=== PATIENT | male | born 1980 | race Caucasian/White ===

== ENCOUNTER 2018-02-23 03:19 | Inpatient (IN) ==
[2018-02-23] MEDS ORDERED: HALOPERIDOL 5 MG/ML AMP IM STA ×2 (03:44→07:05)
[2018-02-23] MEDS ORDERED: diphenhydrAMINE 50 MG/1 ML VIAL IM STA (03:44)
[2018-02-23] MEDS ORDERED: LORazepam 2 MG/1 ML VIAL IV STA (04:45)
[2018-02-23] MEDS ORDERED: LORazepam 2 MG/1 ML VIAL ONE (04:46)
[2018-02-23 05:00] LABS: Basophils # 0.1 10*3/uL (0.0-0.2); Basophils % 0.4 % (0.0-0.8); Eosinophils % 0.1 % (0.00-10.9); Hematocrit 39.1 VOL% (42.0-52.0); Hemoglobin 13.4 GM/DL (14.0-18.0); Immature Granulocytes % 0.4 %; Immature Granulocytes Absolute 0.06 #; Lymphocytes # 2.3 10*3/uL (1.4-4.0); Mean Corpuscular HGB Conc 34.3 GM/DL (32-36); Mean Corpuscular Hemoglobin 31 PG (27-34); Mean Corpuscular Volume 90.5 FL (87-102); Mean Platelet Volume 13.4 FL (9.6-12.0); Monocytes # 0.9 10*3/uL (0.11-0.8); Neutrophils # 10.1 10*3/uL (1.4-7.4); Neutrophils % 75.1 % (38.7-73.9); Platelet Count 153 T/CUMM (130-400); Red Blood Count 4.32 MC/CUMM (3.8-5.5); Red Cell Distribution Width 12.3 % (9.3-17.3); White Blood Count 13.4 T/CUMM (4-12)
[2018-02-23] MEDS ORDERED: MIDAZOLAM 2 MG/2 ML VIAL IV STA ×2 (05:14→05:15)
[2018-02-23 05:18] LABS: Ammonia 18 UMOL/L (11-32)
[2018-02-23] MEDS ORDERED: HALOPERIDOL 5 MG/ML AMP IV STA (05:20)
[2018-02-23 05:24] LABS: Alanine Aminotransferase 34 U/L (16-61); Albumin 4.2 G/DL (3.4-5.0); Alkaline Phosphatase 79 U/L (45-117); Aspartate Amino Transferase 24 U/L (0-37); Blood Urea Nitrogen 14 MG/DL (7-18); Calcium 8.9 MG/DL (8.5-10.1); Glucose 106 MG/DL (74-106); Osmolality,Calculated 283.1 MOS/KG (273-304); Potassium 3.6 MMOL/L (3.5-5.1); Sodium 142 MMOL/L (136-145); Total Protein 7.1 G/DL (6.4-8.3)
[2018-02-23 05:30] LABS: Barbiturates Screen,Urine Negative (Negative); Benzodiazepines Screen,Urine Negative (Negative); Cannabinoid Screen,Urine Negative (Negative); Opiate Screen,Urine Negative (Negative); Phencyclidine Screen,Urine Negative (Negative)
[2018-02-23 05:49] LABS: Salicylate < 2.8 MG/DL (2.8-20)
[2018-02-23 05:50] LABS: Acetaminophen < 2.0 UG/ML (10-30)
[2018-02-23] MEDS ORDERED: SODIUM CHLORIDE 0.9% 1,000 ML IV STA (06:19)
[2018-02-23] MEDS ORDERED: BENZTROPINE 2 MG/2 ML AMP IM ONE (07:06)
[2018-02-23] MEDS ORDERED: BENZTROPINE 2 MG/2 ML AMP ONE (07:07)
[2018-02-23] MEDS ORDERED: PROPOFOL 1,000 MG/100 ML BOTTLE IV ONE (07:23)
[2018-02-23] MEDS ORDERED: VECURONIUM 10 MG VIAL IV ONE (07:29)
[2018-02-23] MEDS ORDERED: ETOMIDATE 20 MG/10 ML VIAL IV ONE (07:29)
[2018-02-23] MEDS: PROPOFOL 1,000 MG/100 ML BOTTLE IV SCH ×5 (07:30→22:55)
[2018-02-23] MEDS ORDERED: ETOMIDATE 20 MG/10 ML VIAL IV STA (07:41)
[2018-02-23] MEDS ORDERED: VECURONIUM 10 MG VIAL IV STA ×2 (07:41→08:17)
[2018-02-23 08:12] LABS: Apearance,Urine CLEAR (Clear); Bilirubin,Urine Negative (Negative); Blood, Urine Negative (Negative); Glucose,Urine (UA) Negative (Negative); Ketones,Urine Negative (Negative); Mucus,Urine Occasional /LPF (Occasional); Nitrite,Urine Negative (Negative); Protein,Urine Negative; RBC,Urine 1 /HPF (0-4); Urine Color Yellow (Yellow); Urine Specific Gravity 1.027 (1.001-1.035); Urine Urobilinogen < 2.0 EU/DL (0.2-1.0); WBC,Urine <1 /HPF (0-6)
[2018-02-23 08:38] LABS: ABG Base Excess 2.1 MMOL/L (-2.5-2.5); ABG HCO3 25.5 MMOL/L (20-26); ABG PCO2 38.9 MM HG (35-48); ABG PH 7.436 (7.35-7.45); ABG TCO2 23.3 MMOL/L (23-27)
[2018-02-23 08:39] LABS: ABG PO2 33.7 MM HG (80-95)
[2018-02-23] MEDS: LORazepam 2 MG/1 ML VIAL IV PRN (09:43)
[2018-02-23] MEDS: SODIUM CHLORIDE 0.9% 1,000 ML IV SCH ×2 (09:43→17:45)
[2018-02-23] MEDS: ENOXAPARIN 40 MG/0.4 ML SYRINGE SUBCUT SCH (09:48)
[2018-02-23] MEDS ORDERED: INFLUENZA VIRUS VACCINE 0.5 ML SYRINGE IM ONE (10:00)
[2018-02-23] MEDS ORDERED: MIDAZOLAM 100 MG in SODIUM CHLORIDE 0.9% 80 ML IV PRN (10:34)
[2018-02-24] MEDS: SODIUM CHLORIDE 0.9% 1,000 ML IV SCH (02:01)
[2018-02-24] MEDS: PROPOFOL 1,000 MG/100 ML BOTTLE IV SCH ×3 (02:01→08:15)
[2018-02-24 04:59] LABS: Basophils # 0.1 10*3/uL (0.0-0.2); Basophils % 0.4 % (0.0-0.8); Eosinophils # 0.2 10*3/uL (0.0-0.87); Eosinophils % 1.4 % (0.00-10.9); Hematocrit 34.4 VOL% (42.0-52.0); Hemoglobin 11.6 GM/DL (14.0-18.0); Immature Granulocytes % 0.5 %; Immature Granulocytes Absolute 0.06 #; Mean Corpuscular HGB Conc 33.7 GM/DL (32-36); Mean Corpuscular Hemoglobin 31 PG (27-34); Mean Corpuscular Volume 90.8 FL (87-102); Mean Platelet Volume 13.8 FL (9.6-12.0); Monocytes # 0.7 10*3/uL (0.11-0.8); Monocytes % 6.5 % (1.7-12.7); Neutrophils # 8.1 10*3/uL (1.4-7.4); Neutrophils % 73.2 % (38.7-73.9); Platelet Count 123 T/CUMM (130-400); Red Blood Count 3.79 MC/CUMM (3.8-5.5); Red Cell Distribution Width 12.5 % (9.3-17.3); White Blood Count 11.1 T/CUMM (4-12)
[2018-02-24 05:35] LABS: Osmolality,Calculated 287.6 MOS/KG (273-304)
[2018-02-24] MEDS: ENOXAPARIN 40 MG/0.4 ML SYRINGE SUBCUT SCH (08:15)
[2018-02-24] MEDS: LORazepam 2 MG/1 ML VIAL IV PRN (08:41)
[2018-02-24] MEDS ORDERED: DEXT 5% NACL 0.45% KCL 10 MEQ 10 MEQ/1,000 ML BAG IV SCH (09:00)
[2018-02-24] MEDS: POTASSIUM CHLORIDE RIDER 10 MEQ in PREMIX 1 EACH IV PRN ×7 (09:20→19:30)
[2018-02-25 05:26] LABS: Calcium 8.4 MG/DL (8.5-10.1); Osmolality,Calculated 285.7 MOS/KG (273-304); Potassium 3.9 MMOL/L (3.5-5.1)
[2018-02-25] MEDS: ENOXAPARIN 40 MG/0.4 ML SYRINGE SUBCUT SCH (09:06)
[2018-02-25 16:31] VITALS: BP 141/98
== END 2018-02-25 17:29 | disposition home or self-care (01) | DRG 885 ==
LOC: EDUNIT# → EDBD → N.ED 03:19 → SUATTDRO 08:19 → N.EDINP 08:19 → N.CC 09:10 → N.5E 02-25 06:50
PROVIDERS: ADMIT Internal Medicine Geriatric Medicine; ATTEND Hospitalist